=== PATIENT | male | born 1990 | race Caucasian/White ===

== ENCOUNTER 2025-03-27 20:51 | Emergency (ER) | payer BC, SELFPAY ==
[2025-03-27 20:53] VITALS: BP 137/88; PULSE 101; RESP 22; TEMP 36.7; O2SAT 99; BMI 18.0
--- NOTE | 2025-03-27 20:57 | XRR_ITS ---
PROCEDURE INFORMATION: Exam: XR Chest Exam date and time: 03/27/2025 9:10 PM Age: 35 years old Clinical indication: Pain; Chest pressure; Additional info: Cp TECHNIQUE: Imaging protocol: Radiologic exam of the chest. Views: 1 view. COMPARISON: No relevant prior studies available. FINDINGS: Lungs: Biapical pleural-parenchymal scarring is present. Pleural spaces: No confluent consolidation, pleural effusion, or pneumothorax is noted. Heart/Mediastinum: Unremarkable. No cardiomegaly. Bones/joints: Unremarkable. XR/XR chest 1V portable [id number] IMPRESSION: No acute findings.
--- NOTE | 2025-03-27 20:57 | ECG_ITS ---
[facility] Date: 2025-03-27 Pat Name: Feliciano Mustafa Department: Room: Gender: Male Manager Social: : 1990 Requested By: Rahel Cross Order Number: [id number] Reading MD: LOAN KANG Measurements Intervals [place] Rate: 106 P: 82 CT: 155 QRS: 83 QRSD: 82 T: 76 QT: 315 QTc: 420 Interpretive Statements SINUS TACHYCARDIA NONSPECIFIC T-WAVE ABNORMALITY ABNORMAL RHYTHM ECG No previous ECG available for comparison Electronically Signed On 03-28-2025 20:12:36 CDT by LOAN KANG [email or web address] [id number]
--- NOTE | 2025-03-27 20:57 | ECG_ITS ---
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
[2025-03-27 21:16] LABS: Hematocrit 45.3 % (37-53); Hemoglobin 15.60 g/dL (11.27-16.99); Mean Corpuscular HGB Conc 34.4 g/dL (30-55); Mean Corpuscular Hemoglobin 29.3 pg (27-33); Mean Corpuscular Volume 85.2 fl (82-101); Nucleated Red Blood Cells % 0 %; Platelet Count 239 10^3/cmm (157-399); Red Blood Count 5.32 10^6/uL (3.85-5.65); White Blood Count 6.77 10^3/uL (3.29-11.43)
--- NOTE | 2025-03-27 21:23 | ED_ITS ---
HPI - Chest Pain 2 General: Chief Complaint: Chest Pain Stated Complaint: CP Time Seen by Provider: 03/27/25 20:57 Source: patient Mode of arrival: ambulatory Limitations: no limitations History of Present Illness: 35-year-old male states that he had sudd en onset of chest pain after he ate dinner at 7 PM. He states he felt he had a gas bubble in his lower chest and a squeezing feeling. He states that since then improved pain is currently a 2 out of 10 he denies any fevers Associated symptoms: Deny abdominal pain, dyspnea, fever(s), nausea or vomiting Related Data Previous Rx's ?Medication ?Instructions ?Recorded pantoprazole 40 mg tablet,delayed 40 mg PO DAILY #60 t abs 03/27/25 release (Protonix) Allergies Allergy/AdvReac Type Severity Reaction Status Date / Time No Known Allergies Allergy Verified 03/27/25 21:01 Review of Systems 2 Const: Denies: fever(s), chills, body aches or change in appetite ENMT: Denies: throat pain or dental pain Card: Reports: chest pain Resp: Denies: dyspnea GI: Denies: abdominal pain, nausea, vomiting or diarrhea Musc: Denies: neck pain or back pain Skin/Breast: Denies: rash Physical Exam 2 Const: COMMON NORMALS: no acute distress, patient oriented x3 and healthy appearing HENMT: COMMON NORMALS: normocephalic and atraumatic HEAD & SCALP: n ormocephalic and atraumatic Neck/C-Spine: COMMON NORMALS: full ROM and supple Chest: COMMONS NORMALS: normal inspection of the chest Resp: COMMON NORMALS: normal respiratory effort, No retractions, No use of accessory muscles and clear to auscultation bilaterally AUSCULTATION: clear to auscultation bilaterally Cardio: COMMON NORMALS: regular rate, regular rhythm and No murmurs present (Cardio) RATE: regular rate RHYTHM: regular rhythm GI: COMMON NORMALS: Normal to inspection, nondistended, normoactive bowel sounds present, Soft to palpation, non-tender and no masses PALPATION: Yes Soft to palpation Extremity: COMMON NORMALS: normal to inspection Neuro: COMMON NORMALS: patient oriented x3, moves all extremities and no focal motor deficits Psych: COMMON NORMALS: mental status grossly normal, Normal thought process present and cooperative THOUGHT PROCESS: Normal thought process present Skin: COMMON NORMALS: no rashes or lesions noted and no wounds GENERAL SKIN EXAM: no rashes or lesions noted Course 2 Vital Signs: Vital signs: Vital Signs Temperature 98.1 F 03/27/25 20:53 Pulse Rate 101 H 03/27/25 20:53 Respiratory Rate 22 H 03/27/25 20:53 Blood Pressure 137/88 03/27/25 20:53 Pulse Oximetry 99 03/27/25 20:53 Oxygen Delivery Me thod Room Air 03/27/25 20:53 MDM - Chest Pain Medical Decision Making Patient presents here with chest pain all abdominal pain likely gastric in nature a GI cocktail resolved his pain. He is blood work for troponin here normal is no signs of pneumothorax no signs of pulm embolism or acute coronary syndrome we will place him on Protonix he stable for discharge follow-up PCP return if worsening. Medical Records I reviewed the patient's medical records. Lab Data I reviewed the patient's lab results. 03/27/25 21:10 03/27/25 21:10 Radiology Impressions Chest X-Ray 03/27/25 20:57 IMPRESSION: No acute findings. Laboratory Results WBC 6.77 10^3/uL (3.29-11.43) 03/27/25 21:10 RBC 5.32 10^6/uL (3.85-5.65) 03/27/25 21:10 Hgb 15.60 g/dL (11.27-16.99) 03/27/25 21:10 Hct 45.3 % (37-53) 03/27/25 21:10 MCV 85.2 fl (82-101) 03/27/25 21:10 MCH 29.3 pg (27-33) 03/27/25 21:10 MCHC 34.4 g/dL (30-55) 03/27/25 21:10 RDW 12.2 % (12.1-15.1) 03/27/25 21:10 Plt Count 239 10^3/cmm (157-399) 03/27/25 21:10 MPV 10.5 fL (7.4-10.4) H 03/27/25 21:10 Neut % (Auto) 65.9 % 03/27/25 21:10 Lymph % (Auto) 22.5 % 03/27/25 21:10 Spink % (Auto) 9.5 % 03/27/25 21:10 Eos % (Auto) 1.0 % 03/27/25 21:10 Baso % (Auto) 0.7 % 03/27/25 21:10 Neut # (Auto) 4.46 10^3/uL (1.8-7.7) 03/27/25 21:10 Lymph # (Auto) 1.5 10^3/uL (0.8-4.8) 03/27/25 21:10 Spink # (Auto) 0.6 10^3/uL (0.2-0.9) 03/27/25 21:10 Eos # (Auto) 0.1 10^3/uL (0.0-0.8) 03/27/25 21:10 Baso # (Auto) 0.1 10^3/uL (0.0-0.1) 03/27/25 21:10 Nucleated RBC % (auto) 0 % 03/27/25 21:10 Nucleated RBCs # 0.0 /100WBC 03/27/25 21:10 Sodium 140 mmol/L (136-145) 03/27/25 21:10 Potassium 3.8 mmol/L (3.5-5.1) 03/27/25 21:10 Chloride 100 mmol/L (98-107) 03/27/25 21:10 Carbon Dioxide 25 mmol/L (22-29) 03/27/25 21:10 Anion Gap 18.8 (5-19) 03/27/25 21:10 BUN 9 mg/dL (6-20) 03/27/25 21:10 Creatinine 0.9 mg/dL (0.7-1.2) 03/27/25 21:10 GFR Calculation 96.6 mL/min (90-130) 03/27/25 21:10 Glucose 90 mg/dL (65-115) 03/27/25 21:10 Calculated Osmolality 288 mOsm/kg (285-295) 03/27/25 21:10 Calcium 9.4 mg/dL (8.5-10.5) 03/27/25 21:10 Total Bilirubin 0.7 mg/dL (0.15-1.2) 03/27/25 21:10 AST 51 U/L (0-40) H 03/27/25 21:10 ALT 78 U/L (0-41) H 03/27/25 21:10 Alkaline Phosphatase 141 U/L (40-130) H 03/27/25 21:10 Troponin T Baseline < 6 ng/L (0-15) 03/27/25 21:10 Total Protein 7.2 g/dL (6.6-8.7) 03/27/25 21:10 Albumin 4.9 g/dL (3.5-5.2) 03/27/25 21:10 Globulin 2.3 g/dL (1.3-4.6) 03/27/25 21:10 Lipase 21 U/L (13-60) 03/27/25 21:10 All radiology interpretation(s) finalized by discharge EKG Data EKG 1: I personally reviewed and interpreted this EKG as follows: EKG interpretation date: 03/27/25 EKG interpretation time: 20:57 Interpretation: sinus tach hr [address] or twave abnormalities qrs 82 qtc 377 Clincial Decision Support The following clinical decision support tools were used to aid in care of the patient HEART Score -> History: Slightly Suspicous, EKG: Normal, Age: Less than 45 yrs, Risk Factors: No Risk Factors Known, Troponin: Baseline Trop <16 ng/L. Resulting HEART Score: 0. Discharge Plan Discharge Patient Disposition: Home Clinical Impression: Atypical chest pain Condition: Stable Prescriptions: New pantoprazole [Protonix] 40 mg tablet,delayed release (DR/EC) 40 mg PO DAILY Qty: 60 0RF Discharge Orders: Discharge ED (Routine); Ordered 03/27/25 Ordered By: Rahel Cross Discharge Diet: Advance as tolerated Discharge Activity: Resume usual activity Patient Instructions: Chest Pain (ED) Print Language: Upper Sorbian Coding Level of Care Code ED [place] Repairer for Johnyg Brittney
[2025-03-27] MEDS: lidocaine 2% viscous 15 ML, aluminum-mag hydrox-simethicon 30 ML, sucralfate oral liq 1 GM PO (22:01)
[2025-03-27 22:04] LABS: Troponin(5th) Baseline < 6 ng/L (0-15)
[2025-03-27 22:06] LABS: Alanine Aminotransferase 78 U/L (0-41); Albumin Level 4.9 g/dL (3.5-5.2); Alkaline Phosphatase 141 U/L (40-130); Anion Gap 18.8 (5-19); Aspartate Amino Transferase 51 U/L (0-40); Blood Urea Nitrogen 9 mg/dL (6-20); Calcium 9.4 mg/dL (8.5-10.5); Carbon Dioxide 25 mmol/L (22-29); Chloride 100 mmol/L (98-107); Creatinine Clr Calc Pharmacy 109.8147; Globulin 2.3 g/dL (1.3-4.6); Glucose 90 mg/dL (65-115); Lipase 21 U/L (13-60); Osmolality Calculated 288 mOsm/kg (285-295); Potassium 3.8 mmol/L (3.5-5.1); Sodium 140 mmol/L (136-145); Total Protein 7.2 g/dL (6.6-8.7)
[2025-03-27 22:45] VITALS: BP 133/78; PULSE 85; RESP 16; O2SAT 97
== END 2025-03-27 22:51 | disposition home or self-care (01) ==
PROVIDERS: Emergency Provider Emergency Medicine
DX: R07.89 Other chest pain (principal)
CPT/HCPCS: 36415; 71045; 80053; 83690; 84484; 85025; 93005; 99285; J9999

== ENCOUNTER 2025-04-23 08:24 | Outpatient (CLI) | payer BC, SELFPAY ==
--- NOTE | 2025-04-23 08:45 | US_ITS ---
WS: [id number] Complete ABDOMINAL ULTRASOUND HISTORY: R10.13 - Epigastric pain COMPARISON: None available. Liver: 13.2 cm in length. Normal size liver and echogenicity. No bile duct dilatation or mass. Portal Vein: Normal hepatopetal flow with monophasic waveform. Gallbladder: Normally distended gallbladder with no stones or wall thickening. CBD: 0.3 cm Pancreas: Partially obscured. Right kidney: 9.6 cm x 4.8 x 5.1 cm. Cortex:1.1 cm. Normal size and echogenicity. No hydronephrosis or mass. Left kidney: 9.8 cm x 5.6 cm x 5.1 cm. Cortex: 1.1 cm. Normal size and echogenicity. No hydronephrosis or mass. Spleen: 11.1 cm. Normal size and echogenicity. Aorta and IVC: Unremarkable abdominal aorta and IVC. US/US abdomen complete* [id number] Impression: Normal complete abdomen ultrasound.
== END 2025-04-23 08:25 | disposition home or self-care (01) ==
LOC: RAD 08:27
PROVIDERS: PCP Nurse Practitioner; Visit Provider Nurse Practitioner
DX: R10.13 Epigastric pain (principal)
CPT/HCPCS: 76700